=== PATIENT | female | born 1980 | race African-American/Black ===

== ENCOUNTER 2023-08-08 15:40 | Emergency (ER) | payer MEDICAID ==
[~2023-08-08] VITALS: Ht 160 cm; Wt 58.0 kg
[2023-08-08 15:48] VITALS: O2SAT 100
[2023-08-08] MEDS: ACETAMINOPHEN 325MG TABLET PO ONE (18:39)
[2023-08-08] MEDS: KETOROLAC 60MG/2ML VIAL IM ONE (18:39)
[2023-08-08] MEDS ORDERED: NAPR500T7 MT (19:31)
[2023-08-08] MEDS ORDERED: ACET-2708 MT (19:31)
[2023-08-08 21:02] VITALS: BP 127/68; PULSE 89; RESP 19; TEMP 98.9
== END 2023-08-08 21:07 | disposition home or self-care (01) ==
LOC: ER 15:40
DX: B34.9 Viral infection, unspecified (principal); J45.909 Unspecified asthma, uncomplicated
CPT/HCPCS: 71045; 93005; 96372; 99283; J1885; Z7610